=== PATIENT | female | born 1995 | race American Indian/Alaskan Native ===

== ENCOUNTER 2019-04-18 01:46 | Emergency (ER) | payer SELFPAY ==
[2019-04-18 02:05] VITALS: BP 175/114
--- NOTE | 2019-04-18 02:44 | XRay Report ---
LEFT ANKLE 3 VIEWS INDICATION: Injury while walking down steps.. COMPARISON: No relevant prior imaging study available. FINDINGS: ORIF hardware projects in expected position. No hardware loosening or fracture is seen. No acute, displaced fracture or dislocation is seen. There is mild soft tissue swelling. There is mil d flatfoot deformity and hindfoot. IMPRESSION: 1. No acute fracture or dislocation. Signer Name: Patel Avalos MD Signed: 04/18/2019 2:39 AM Workstation Name: [email or web address]
[2019-04-18] MEDS ORDERED: ZOFRAN ODT PO ONE (04:17)
[2019-04-18] MEDS ORDERED: PERCOCET 5/325 PO ONE (04:17)
[2019-04-18] MEDS ORDERED: IBUPROFEN PO ONE (04:17)
--- NOTE | 2019-04-18 04:23 | Emergency Department Report ---
ED Extremity Problem HPI - General Chief complaint: Extremity Problem,Nontraumatic Stated complaint: LEG PAIN Time Seen by Provider: 04/18/19 04:18 Source: patient Mode of arrival: Ambulatory Limitations: No Limitations - History of Present Illness Initial comments: Patient is a 23-year-old -[place] female who is morbidly obese and who has a past medical history of left ankle ORIF Surgery 2 years ago and who presents to the ED with c/o acute exacerbation of left ankle pain with swelling for the last 24 hours. Patient states that she is on her feet most of the day at at work and states that the pain has worsened in the last 2 hours, and that she was unable to sleep because of pain. Patient denies fall, traumatic injury, heavy lifting, numbness and tingling or weakness of left ankle and foot, left ankle twisting injury, low back pain, fever, chills, chest pain, shortness of breath or dizziness and cough. MD Complaint: extremity pain (Left ankle), extremity swelling (left ankle), joint swelling (left ankle), joint paint (left ankle) -: Sudden, hour(s) (24) Location: left, lower extremity (ankle) History of Same: Yes (s/p Left ankle ORIF Surgery 2 year ago) -: Yes myalgia, Yes arthralgia, No fever, No associated dyspnea, No associated chest pain Radiation: none Severity scale (0 -10): 8 Quality: aching, sharp, constant Consistency: constant Improves with: nothing Worsens with: weight bearing, walking, palpation Associated Symptoms: denies other symptoms, arthralgias. denies: chest pain, shortness of breath, fever, myalgias - Related Data Previous Rx's Medication Instructions Recorded Last Taken Type Baclofen 20 mg PO Q8H PRN #21 tablet 04/18/19 Unknown Rx Ibuprofen [Motrin] 800 mg PO Q8HR PRN #24 tablet 04/18/19 Unknown Rx traMADol [Ultram] 50 mg PO Q6HR PRN #15 tablet 04/18/19 Unknown Rx Allergies Allergy/AdvReac Type Severity Reaction Status Date / Time No Known Allergies Allergy Unverified 04/18/19 01:52 ED Review of Systems ROS: Stated complaint: LEG PAIN Other details as noted in HPI Constitutional: denies: chills, fever Eyes: denies: eye pain, eye discharge, vision change ENT: denies: ear pain, throat pain Respiratory: denies: cough, shortness of breath, wheezing Cardiovascular: denies: chest pain, palpitations Endocrine: no symptoms reported Gastrointestinal: denies: abdominal pain, nausea, diarrhea Genitourinary: denies: urgency, dysuria, discharge Musculoskeletal: joint swelling (left ankle), arthralgia (left ankle), myalgia (left ankle). denies: back pain Skin: denies: rash, lesions Neurological: denies: headache, weakness, paresthesias Psychiatric: denies: anxiety, depression Hematological/Lymphatic: denies: easy bleeding, easy bruising ED Past Medical Hx - Past Medical History Previous Medical History?: No - Surgical History Past Surgical History?: Yes Additional Surgical History: L ankle sx 2016, hardware in L ankle - Social History Smoking Status: Current Every Day Smoker - Medications Home Medications: Home Medications Medication Instructions Recorded Confirmed Last Taken Type Baclofen 20 mg PO Q8H PRN #21 tablet 04/18/19 Unknown Rx Ibuprofen [Motrin] 800 mg PO Q8HR PRN #24 tablet 04/18/19 Unknown Rx traMADol [Ultram] 50 mg PO Q6HR PRN #15 tablet 04/18/19 Unknown Rx ED Physical Exam - General Limitations: No Limitations General appearance: alert, in no apparent distress - Head Head exam: Present: atraumatic, normocephalic, normal inspection - Eye Eye exam: Present: normal appearance, PERRL, EOMI. Absent: scleral icterus Pupils: Present: normal accommodation - ENT ENT exam: Present: normal exam, normal orophraynx, mucous membranes moist, TM's normal bilaterally, normal external ear exam - Neck Neck exam: Present: normal inspection, full ROM. Absent: tenderness, meningismus, lymphadenopathy, thyromegaly - Respiratory Respiratory exam: Present: normal lung sounds bilaterally. Absent: respiratory distress, wheezes, rales, rhonchi, chest wall tenderness, accessory muscle use, decreased breath sounds, prolonged expiratory - Cardiovascular Cardiovascular Exam: Present: regular rate, normal rhythm, normal heart sounds. Absent: systolic murmur, diastolic murmur, rubs, gallop - GI/Abdominal GI/Abdominal exam: Present: soft, normal bowel sounds. Absent: distended, tenderness, guarding, rebound, hyperactive bowel sounds, hypoactive bowel sounds, organomegaly - Rectal Rectal exam: Present: deferred - Extremities Exam Extremities exam: Present: normal inspection, full ROM, tenderness (Palpable left ankle tenderness with limied ROM due to pain), normal capillary refill, joint swelling (left ankle). Absent: pedal edema, calf tenderness - Back Exam Back exam: Present: normal inspection, full ROM. Absent: tenderness, CVA tenderness (R), CVA tenderness (L), muscle spasm, paraspinal tenderness, vertebral tenderness - Neurological Exam Neurological exam: Present: alert, oriented X3, CN II-XII intact, normal gait, reflexes normal - Psychiatric Psychiatric exam: Present: normal affect, normal mood - Skin Skin exam: Present: warm, dry, intact, normal color. Absent: rash ED Course Vital Signs 04/18/19 01:56 Temperature 99.9 F H Pulse Rate 103 H Respiratory 18 Rate Blood Pressure 175/114 O2 Sat by Pulse 97 Oximetry - Reevaluation(s) Reevaluation #1: 04/18/19 04:24 Patient is alert and oriented 3 and is not in distress but pain. Patient was treated for pain and left ankle x-ray shows no acute fractures or dislocations but some mild soft tissue swelling. The ORIF hardware projects in expected position. There is no hardware loosening or fracture seen. The patient left ankle was splinted as above and patient discharged home on pain medications and muscle relaxants, and advised to follow-up with the orthopedic surgeon in 5-7 days for reevaluation or return to the ED immediately if symptoms get worse. 04/18/19 04:25 ED Medical Decision Making - Radiology Data Radiology results: report reviewed, image reviewed Left ankle x-ray shows no acute fractures or dislocations but some mild soft tissue swelling. The ORIF hardware projects in expected position. There is no hardware loosening or fracture seen. - Medical Decision Making Patient is alert and oriented 3 and is not in distress but pain. Patient was treated for pain and left ankle x-ray shows no acute fractures or dislocations but some mild soft tissue swelling. The ORIF hardware projects in expected position. There is no hardware loosening or fracture seen. The patient left ankle was splinted as above and patient discharged home on pain medications and muscle relaxants, and advised to follow-up with the orthopedic surgeon in 5-7 days for reevaluation or return to the ED immediately if symptoms get worse. - Differential Diagnosis Left ankle sprain; Muscle strain of left ankle; left ankle fracture Critical care attestation.: If time is entered above; I have spent that time in minutes in the direct care of this critically ill patient, excluding procedure time. ED Disposition Clinical Impression: Severe sprain of left ankle Qualifiers: Encounter type: initial encounter Qualified Code(s): S93.402A - Sprain of unspecified ligament of left ankle, initial encounter Muscle strain of left ankle Qualifiers: Encounter type: initial encounter Qualified Code(s): S96.912A - Strain of unspecified muscle and tendon at ankle and foot level, left foot, initial encounter Disposition: TO HOME OR SELFCARE Is pt being admited?: No Does the pt Need Aspirin: No Condition: Stable Instructions: Muscle Strain (ED), Ankle Sprain (ED) Additional Instructions: Take medications with food, drink plenty of fluids and follow up with your primary care physician or orthopedic surgeon in 5-7 days for reevaluation. Return to the ED immediately if symptoms get worse. Prescriptions: Baclofen 20 mg PO Q8H PRN #21 tablet PRN Reason: Spasms Ibuprofen [Motrin] 800 mg PO Q8HR PRN #24 tablet PRN Reason: Pain , Severe (7-10) traMADol [Ultram] 50 mg PO Q6HR PRN #15 tablet PRN Reason: Pain Referrals: [facility] [Outside] - 3-5 Days Forms: Work/School Release Form(ED) Time of Disposition: 04:28 Print Language: SYRIAC
== END 2019-04-18 04:50 | disposition home or self-care (01) ==
LOC: ED 01:46
DX: S96.912A Strain of unspecified muscle and tendon at ankle and foot level, left foot, initial encounter (principal); S93.402A Sprain of unspecified ligament of left ankle, initial encounter; F17.200 Nicotine dependence, unspecified, uncomplicated; X58.XXXA Exposure to other specified factors, initial encounter; Y93.89 Activity, other specified; Y92.89 Other specified places as the place of occurrence of the external cause; Y99.8 Other external cause status
CPT/HCPCS: Q0162